=== PATIENT | male | born 1935 | race Caucasian/White ===

== ENCOUNTER 2018-07-07 11:36 | Emergency (ER) | payer MEDICARE ==
--- NOTE | 2018-07-07 12:10 | ERPHSYRPT ---
- History of Present Illness Time Seen by Provider: 07/07/18 12:00 Source: patient Patient Subjective Stated Complaint: had has bleeding to lower lip, he has a scab on lip from cutting it from shaving bout 2 weeks ago, today scab came off and now it is bleeding Triage Nursing Assessment: pt walked in, alert, resp easy, skin w.d.p bleedign from lower lip Physician History: PATIENT WITH A HISTORY OF PERIPHERAL VASCULAR OCCLUSIVE DISEASE, BILATERAL FEMORAL STENTS ON COUMADIN, SUSTAINED A SMALL CUT BELOW HIS LOWER LIP 2 WEEKS AGO, WHILE SHAVING, NOW SCAB CAME OFF WHILE SHAVING AND HAS PERSISTENT BLEEDING FROM SITE. Timing/Duration: gradual onset Severity: mild ENT Location: mouth (BELOW LOWER LIP) Modifying Factors: Improves With: nothing Associated Symptoms: denies symptoms Allergies/Adverse Reactions: No Known Drug Allergies Allergy (Unverified 07/07/18 11:52) Home Medications: No Reportable Medications [No Reported Medications] 07/07/18 [History] Hx Tetanus, Diphtheria Vaccination/Date Given: No Hx Influenza Vaccination/Date Given: Yes Hx Pneumococcal Vaccination/Date Given: Yes Immunizations Up to Date: Yes - Review of Systems Constitutional: No Fever, No Chills Eyes: No Symptoms Ears, Nose, & Throat: No Symptoms, Other (1 MM OPEN WOUND BELOW LOWER LIP LEFT TO MIDLINE BELOW FLORESITA BORDER) Respiratory: No Symptoms, No Cough, No Dyspnea Cardiac: No Symptoms, No Chest Pain, No Edema, No Syncope Abdominal/Gastrointestinal: No Symptoms, No Abdominal Pain, No Nausea, No Vomiting, No Diarrhea Genitourinary Symptoms: No Dysuria Musculoskeletal: No Back Pain, No Neck Pain Skin: No Rash Neurological: No Dizziness, No Focal Weakness, No Sensory Changes Psychological: No Symptoms Endocrine: No Symptoms All Other Systems: Reviewed and Negative - Past Medical History Pertinent Past Medical History: Yes Cardiac History: Coronary Artery Disease Respiratory History: Other Endocrine Medical History: Diabetes Type II Other Medical History: colon cancer resolved, kindey disease - Past Surgical History Past Surgical History: Yes Cardiac: Valve Replacement Gastrointestinal: Colon Resection Other Surgical History: stents in legs - Social History Smoking Status: Former smoker Exposure to second hand smoke: No Drug Use: none Patient Lives Alone: No - Nursing Vital Signs Nursing Vital Signs: Initial Vital Signs Temperature 97.6 F 07/07/18 11:47 Pulse Rate 65 07/07/18 11:47 Respiratory Rate 16 07/07/18 11:47 Blood Pressure 163/81 07/07/18 11:47 O2 Sat by Pulse Oximetry 96 07/07/18 11:47 Pain Scale Pain Intensity 0 - Physical Exam General Appearance: no apparent distress, alert Eye Exam: bilateral eye: PERRL, EOMI Nasal Exam: normal inspection Throat Exam: normal, pharynx normal (THERE IS A 1MM PUNCTURE WOUND SUPERFICIAL, BELOW LOWER LIP, LEFT TO MIDLINE, INFERIOR TO FLORESITA BORDER) Neck Exam: supple Cardiovascular/Respiratory Exam: normal breath sounds, regular rate/rhythm, heart sounds normal Neurologic Exam: alert, oriented x 3 Skin Exam: normal color SpO2: 96 Procedures - Laceration/Wound Repair Upper Lip Wound Length (cm): 0.1 Wound's Depth, Shape: superficial Wound Explored: clean Irrigated: Yes Hibiclens Prep: Yes Anesthesia: local, 1% Lidocaine Volume Anesthetic (ccs): 1 Wound Repaired With: sutures Suture Size/Type: 6-0 Number of Sutures: 1 Sterile Dressing Applied?: No Splint Applied?: No Ordered Tests: Active Orders 24 hr Category Date Time Status CBC W DIFF Stat Lab 07/07/18 12:04 Completed PROTIME WITH INR Stat Lab 07/07/18 12:04 Completed Lab/Rad Data: Laboratory Result Diagrams 07/07/18 12:04 Laboratory Results 07/07/18 07/07/18 Range/Units 12:04 12:04 WBC 6.0 (4.0-10.5) K/mm3 RBC 4.13 (4.1-5.6) M/mm3 Hgb 11.4 L (12.5-18.0) gm/dl Hct 34.4 L (42-50) % MCV 83.3 (78-100) fl MCH 27.6 (26-32) pg MCHC 33.1 (32-36) g/dl RDW 14.7 H (11.5-14.0) % Plt Count 177 (150-450) K/mm3 MPV 8.9 (6-9.5) fl Gran % 72.7 H (36.0-66.0) % Eos # (Auto) 0.23 (0-0.5) Absolute Lymphs (auto) 0.88 L (1.0-4.6) Absolute Monos (auto) 0.49 (0.0-1.3) Lymphocytes % 14.6 L (24.0-44.0) % Monocytes % 8.2 (0.0-12.0) % Eosinophils % 3.8 (0.00-5.0) % Basophils % 0.7 (0.0-0.4) % Absolute Granulocytes 4.37 (1.4-6.9) Basophils # 0.04 (0-0.4) PT 31.4 H (8.83-12.87) SECONDS INR 2.67 (0.8-3.0) - Progress Progress: improved Progress Note: 07/07/18 13:12 LIDOCAINE 1% 1 ML INFILTRATION OVER SITE 1MM WOUND , SUTURE WITH ETHLION 6-0 SUTURE-1 Counseled pt/family regarding: lab results, diagnosis, need for follow-up - Departure Time of Disposition: 13:18 Departure Disposition: Home Clinical Impression: LIP LACERATION Condition: Stable Critical Care Time: No Referrals: Sonya HARTMANN [Primary Care Provider] - Additional Instructions: HAVE SUTURE BELOW LOWER LIP REMOVED AT 8 DAYS. APPLY PRESSURE OVER SITE FOR ONSET OF BLEEDING FOR 15 MINUTES, AND RETURN TO EMERGENCY ROOM FOR PERSISTENT BLEEDING.
[2018-07-07 12:18] LABS: BASOPHIL % 0.7 % (0.0-0.4); Basophil (Absolute #) 0.04 (0-0.4); Eosinophil % 3.8 % (0.00-5.0); Eosinophil (Absolute #) 0.23 (0-0.5); Granulocyte Absolute (ANC) 4.37 (1.4-6.9); Granulocytes % 72.7 % (36.0-66.0); Hematocrit 34.4 % (42-50); Hemoglobin 11.4 gm/dl (12.5-18.0); Lymphocyte (Absolute #) 0.88 (1.0-4.6); Lymphocytes % 14.6 % (24.0-44.0); Mean Cell Volume 83.3 fl (78-100); Mean Corpuscular Hemoglobin 27.6 pg (26-32); Mean Corpuscular Hgb Concent. 33.1 g/dl (32-36); Mean Platelet Volume 8.9 fl (6-9.5); Monocyte (Absolute #) 0.49 (0.0-1.3); Monocytes % 8.2 % (0.0-12.0); Platelet Count 177 K/mm3 (150-450); Red Blood Count 4.13 M/mm3 (4.1-5.6); Red Cell Distribution Width 14.7 % (11.5-14.0)
[2018-07-07 12:25] LABS: INR 2.67 (0.8-3.0); PROTIME 31.4 SECONDS (8.83-12.87)
[2018-07-07 13:25] VITALS: PULSE 70
[2018-07-07 13:30] VITALS: BP 143/67; O2SAT 97
== END 2018-07-07 13:25 | disposition home or self-care (01) ==
LOC: ED 11:36
DX: S01.511A Laceration without foreign body of lip, initial encounter (principal); Z79.01 Long term (current) use of anticoagulants; W26.8XXA Contact with other sharp object(s), not elsewhere classified, initial encounter; Y93.E1 Activity, personal bathing and showering
CPT/HCPCS: 12001; 36415; 85025; 85610; 99283

== ENCOUNTER 2018-07-29 11:43 | Emergency (ER) | payer MEDICARE ==
[2018-07-29] MEDS ORDERED: Sodium Chloride 0.9% 1000 ML 1,000 ML IV STA (11:46)
--- NOTE | 2018-07-29 11:46 | ERPHSYRPT ---
- History of Present Illness Time Seen by Provider: 07/29/18 11:46 Source: patient, family Exam Limitations: no limitations Physician History: 83 y/o white male with h/o peripheral vascular dz with stents in place, diabetes , chronic renal dz stage 3, and cardiac valve placement in the past, presents with stroke like sx including dragging foot(unsure which one) and slurred speech. pt is on warfarin and asa daily. pts sx lasted only a few seconds per pt and spouse. occurred while pt was eating lunch at a restaurant. pt declined ems transport to ed. pt denies visual changes and denies cp. Timing/Duration: today Severity: moderate Character of Deficits: new weakness, impaired speech Deficits: no difficulties Baseline/Normal Cognition: alert oriented x 3 Current Cognition: alert oriented x 3 Baseline Gait: walks w/o assistance Associated Symptoms: slurred speech, trouble walking, No confusion, No loss of consciousness, No ringing in ears, No seizures, No vision changes Allergies/Adverse Reactions: No Known Drug Allergies Allergy (Verified 07/29/18 12:09) Home Medications: Aspirin EC 81 mg [Ecotrin 81 mg] 81 mg PO DAILY 07/29/18 [History] Atorvastatin Calcium 20 mg PO DAILY 07/29/18 [History] Gabapentin 300 mg PO DAILY 07/29/18 [History] HydrALAzine HCL 25 MG TAB [Apresoline 25 MG TABLET] 75 mg PO TID 07/29/18 [History] Hydrochlorothiazide 25 mg [hydroDIURIL 25 MG] 25 mg PO DAILY 07/29/18 [ History] Labetalol HCl [Trandate] 300 mg PO BID 07/29/18 [History] Losartan Potassium [Cozaar] 100 mg PO DAILY 07/29/18 [History] Metformin HCl 500 mg PO DAILY 07/29/18 [History] Tamsulosin HCl 0.4 mg PO BID 07/29/18 [History] Warfarin Sodium 5 mg PO UD 07/29/18 [History] Hx Tetanus, Diphtheria Vaccination/Date Given: No Hx Influenza Vaccination/Date Given: Yes Hx Pneumococcal Vaccination/Date Given: Yes - Review of Systems Constitutional: No Symptoms Eyes: No Symptoms Ears, Nose, & Throat: No Symptoms Respiratory: No Symptoms Cardiac: No Symptoms Abdominal/Gastrointestinal: No Symptoms Genitourinary Symptoms: No Symptoms Musculoskeletal: No Symptoms Skin: No Symptoms Neurological: Gait Changes, Speech Changes Psychological: No Symptoms - Past Medical History Pertinent Past Medical History: Yes Neurological History: No Pertinent History ENT History: No Pertinent History Cardiac History: Coronary Artery Disease Respiratory History: Other Endocrine Medical History: Diabetes Type II Musculoskeletal History: No Pertinent History GI Medical History: No Pertinent History History: No Pertinent History Psycho-Social History: No Pertinent History Male Reproductive Disorders: No Pertinent History Other Medical History: colon cancer resolved, kindey disease - Past Surgical History Past Surgical History: Yes Neuro Surgical History: No Pertinent History Cardiac: No Pertinent History, Valve Replacement Respiratory: No Pertinent History Gastrointestinal: Colon Resection Genitourinary: No Pertinent History Musculoskeletal: No Pertinent History Male Surgical History: No Pertinent History Other Surgical History: stents in legs - Social History Smoking Status: Former smoker Exposure to second hand smoke: No Drug Use: none Patient Lives Alone: No - Nursing Vital Signs Nursing Vital Signs: Initial Vital Signs Temperature 97.6 F 07/29/18 11:44 Pulse Rate 65 07/29/18 11:44 Respiratory Rate 17 07/29/18 11:44 Blood Pressure 179/77 07/29/18 11:44 O2 Sat by Pulse Oximetry 98 07/29/18 11:44 - Sergio Coma Scale Best Eye Response (Sergio): (4) open spontaneously Best Verbal Response (Sergio): (5) oriented Best Motor Response (Sergio): (6) obeys commands [place] Total: 15 - Physical Exam General Appearance: no apparent distress, alert, anxiety Eye Exam: bilateral eye: normal inspection, PERRL, EOMI Ears, Nose, Throat Exam: normal ENT inspection, moist mucous membranes Neck Exam: normal inspection, non-tender, supple, full range of motion Respiratory: normal breath sounds, lungs clear, airway intact, No chest tenderness, No respiratory distress, No accessory muscle use, No rhonchi, No wheezing, No stridor Cardiovascular: regular rate/rhythm, normal heart sounds, normal peripheral pulses Gastrointestinal: soft, normal bowel sounds, No tenderness, No guarding, No rebound Rectal Exam: not done Back Exam: normal inspection, normal range of motion, No CVA tenderness, No vertebral tenderness Extremity Exam: normal inspection, normal range of motion, pelvis stable Peripheral Pulses: carotid (R): 2+, carotid (L): 2+, femoral (R): 2+, femoral (L ): 2+, dorsalis-pedis (R): 1+, dorsalis-pedis (L): 1+ Mental Status: alert, oriented x 3, cooperative curriculum writer Exam: normal hearing, normal speech, PERRL, tongue midline Coordination/Gait: normal finger to nose, normal gait Motor/Sensory: no motor deficit, no sensory deficit, no pronator drift Skin Exam: normal color SpO2 Interpretation: normal O2 Delivery: Room Air - Course Nursing assessment & vital signs reviewed: Yes EKG Interpreted by Me: RATE (64), NORMAL AXIS, Non-specific ST Changes, Other ( atrial escape rhythm. no comparison ekg) Ordered Tests: Active Orders 24 hr Category Date Time Status Numerical Control Machine Machinist STAT Care 07/29/18 11:47 Active Clean Catch Urine Specimen STAT Care 07/29/18 11:46 Active EKG-ER Only STAT Care 07/29/18 11:46 Active IV Insertion STAT Care 07/29/18 11:46 Active Pulse Oximetry (ED) STAT Care 07/29/18 11:46 Active HEAD WITHOUT CONTRAST [CT] Stat Exams 07/29/18 11:46 Completed CBC W DIFF Stat Lab 07/29/18 12:11 Completed CMP Stat Lab 07/29/18 12:11 Completed PROTIME WITH INR Stat Lab 07/29/18 12:11 Completed UA W/RFX UR CULTURE Stat Lab 07/29/18 13:10 Completed Medication Summary Discontinued Medications Generic Name Dose Route Start Last Admin Trade Name Freq PRN Reason Stop Dose Admin Sodium Chloride 1,000 mls @ 999 mls/hr 07/29/18 11:46 07/29/18 13:51 Sodium Chloride 0.9% 1000 Ml IV 07/29/18 12:46 Infused .Q1H1M STA Infusion Sodium Chloride Confirm 07/29/18 12:20 Sodium Chloride 0.9% 1000 Ml Administered 07/29/18 12:21 Dose 1,000 mls @ ud .ROUTE .STK-MED ONE Lab/Rad Data: Laboratory Result Diagrams 07/29/18 12:11 07/29/18 12:11 Laboratory Results 07/29/18 07/29/18 07/29/18 Range/Units 13:10 12:11 12:11 WBC (4.0-10.5) K/mm3 RBC (4.1-5.6) M/mm3 Hgb (12.5-18.0) gm/dl Hct (42-50) % MCV (78-100) fl MCH (26-32) pg MCHC (32-36) g/dl RDW (11.5-14.0) % Plt Count (150-450) K/mm3 MPV (6-9.5) fl Gran % (36.0-66.0) % Eos # (Auto) (0-0.5) Absolute Lymphs (auto) (1.0-4.6) Absolute Monos (auto) (0.0-1.3) Lymphocytes % (24.0-44.0) % Monocytes % (0.0-12.0) % Eosinophils % (0.00-5.0) % Basophils % (0.0-0.4) % Absolute Granulocytes (1.4-6.9) Basophils # (0-0.4) PT 26.3 H (8.83-12.87) SECONDS INR 2.24 (0.8-3.0) Sodium 127 L (137-145) mmol/L Potassium 4.4 (3.5-5.1) mmol/L Chloride 90 L (98-107) mmol/L Carbon Dioxide 23 (22-30) mmol/L Anion Gap 18.3 H (5-15) MEQ/L BUN 43 H (9-20) mg/dL Creatinine 1.60 H (0.66-1.25) mg/dL Estimated GFR 44.3 ML/MIN Glucose 97 (74-106) mg/dL Calcium 9.1 (8.4-10.2) mg/dL Total Bilirubin 0.50 (0.2-1.3) mg/dL AST 45 (17-59) U/L ALT 29 (0-50) U/L Alkaline Phosphatase 66 (38-126) U/L Serum Total Protein 6.6 (6.3-8.2) g/dL Albumin 4.4 (3.5-5.0) g/dL Urine Color STRAW (YELLOW) Urine Appearance CLEAR (CLEAR) Urine pH 6.0 (5-6) Ur Specific [place] 1.004 (1.005-1.025) Urine Protein NEGATIVE (Negative) Urine Ketones NEGATIVE (NEGATIVE) Urine Blood NEGATIVE (0-5) Bernard/ul Urine Nitrite NEGATIVE (NEGATIVE) Urine Bilirubin NEGATIVE (NEGATIVE) Urine Urobilinogen NEGATIVE (0-1) mg/dL Ur Leukocyte Esterase NEGATIVE (NEGATIVE) Urine WBC (Auto) NONE (0-5) /HPF Urine RBC (Auto) NONE (0-2) /HPF U Epithel Cells (Auto) NONE (FEW) /HPF Urine Bacteria (Auto) NONE (NEGATIVE) /HPF Urine Culture Reflexed NO (NO) Urine Glucose NEGATIVE (NEGATIVE) mg/dL 07/29/18 Range/Units 12:11 WBC 6.3 (4.0-10.5) K/mm3 RBC 4.15 (4.1-5.6) M/mm3 Hgb 11.4 L (12.5-18.0) gm/dl Hct 34.1 L (42-50) % MCV 82.2 (78-100) fl MCH 27.4 (26-32) pg MCHC 33.4 (32-36) g/dl RDW 14.7 H (11.5-14.0) % Plt Count 184 (150-450) K/mm3 MPV 9.2 (6-9.5) fl Gran % 70.6 H (36.0-66.0) % Eos # (Auto) 0.41 (0-0.5) Absolute Lymphs (auto) 0.82 L (1.0-4.6) Absolute Monos (auto) 0.59 (0.0-1.3) Lymphocytes % 13.0 L (24.0-44.0) % Monocytes % 9.4 (0.0-12.0) % Eosinophils % 6.5 H (0.00-5.0) % Basophils % 0.5 (0.0-0.4) % Absolute Granulocytes 4.44 (1.4-6.9) Basophils # 0.03 (0-0.4) PT (8.83-12.87) SECONDS INR (0.8-3.0) Sodium (137-145) mmol/L Potassium (3.5-5.1) mmol/L Chloride (98-107) mmol/L Carbon Dioxide (22-30) mmol/L Anion Gap (5-15) MEQ/L BUN (9-20) mg/dL Creatinine (0.66-1.25) mg/dL Estimated GFR ML/MIN Glucose (74-106) mg/dL Calcium (8.4-10.2) mg/dL Total Bilirubin (0.2-1.3) mg/dL AST (17-59) U/L ALT (0-50) U/L Alkaline Phosphatase (38-126) U/L Serum Total Protein (6.3-8.2) g/dL Albumin (3.5-5.0) g/dL Urine Color (YELLOW) Urine Appearance (CLEAR) Urine pH (5-6) Ur Specific [place] (1.005-1.025) Urine Protein (Negative) Urine Ketones (NEGATIVE) Urine Blood (0-5) Bernard/ul Urine Nitrite (NEGATIVE) Urine Bilirubin (NEGATIVE) Urine Urobilinogen (0-1) mg/dL Ur Leukocyte Esterase (NEGATIVE) Urine WBC (Auto) (0-5) /HPF Urine RBC (Auto) (0-2) /HPF U Epithel Cells (Auto) (FEW) /HPF Urine Bacteria (Auto) (NEGATIVE) /HPF Urine Culture Reflexed (NO) Urine Glucose (NEGATIVE) mg/dL - Progress Progress: re-examined Progress Note: 07/29/18 13:28 neurologically intact. pre ED sx completely resolved. 07/29/18 13:29 ct head-no acute intracranial process 07/29/18 14:[address] mitchell, vascular surgeon, who was covering for dr. pappas, pts vascular surgeon. i reviewed pt hx, condition and findings on work up here. pt is ok to go home, continue asa and warfarin. follow up tomorrow at vascular clinic for further testing and evaluation including a carotid duplex. Counseled pt/family regarding: lab results, diagnosis, need for follow-up, rad results - Departure Time of Disposition: 14:37 Departure Disposition: Home Clinical Impression: TIA (transient ischemic attack), Chronic renal insufficiency, stage III ( moderate), Hyponatremia Condition: Stable Critical Care Time: No Referrals: Sonya HARTMANN [Primary Care Provider] - Additional Instructions: continue your medication as prescribed. follow up with your vascular surgery clinic tomorrow for further management. they have discussed with you the time.
--- NOTE | 2018-07-29 12:12 | XRAY ---
Indication: Slurred speech. Possible stroke. Multiple contiguous axial images obtained through the head without contrast. Comparison: None Age-appropriate global atrophy. No acute intracranial hemorrhage, abnormal extra-axial fluid collection, or mass effect. Fourth ventricle is midline without hydrocephalus. Bony calvarium intact. Visualized paranasal sinuses and mastoid air cells are clear. Impression: Atrophy. No acute intracranial abnormalities. CT DI 70.38
[2018-07-29] MEDS ORDERED: Sodium Chloride 0.9% 1000 ML 1,000 ML ONE (12:20)
[2018-07-29 12:57] LABS: BASOPHIL % 0.5 % (0.0-0.4); Basophil (Absolute #) 0.03 (0-0.4); Eosinophil % 6.5 % (0.00-5.0); Eosinophil (Absolute #) 0.41 (0-0.5); Granulocyte Absolute (ANC) 4.44 (1.4-6.9); Granulocytes % 70.6 % (36.0-66.0); Hematocrit 34.1 % (42-50); Hemoglobin 11.4 gm/dl (12.5-18.0); Lymphocyte (Absolute #) 0.82 (1.0-4.6); Mean Cell Volume 82.2 fl (78-100); Mean Corpuscular Hgb Concent. 33.4 g/dl (32-36); Mean Platelet Volume 9.2 fl (6-9.5); Monocyte (Absolute #) 0.59 (0.0-1.3); Monocytes % 9.4 % (0.0-12.0); Platelet Count 184 K/mm3 (150-450); Red Blood Count 4.15 M/mm3 (4.1-5.6); Red Cell Distribution Width 14.7 % (11.5-14.0); White Blood Count 6.3 K/mm3 (4.0-10.5)
[2018-07-29 13:08] LABS: ALBUMIN 4.4 g/dL (3.5-5.0); ANION GAP 18.3 MEQ/L (5-15); BILIRUBIN,TOTAL 0.5 mg/dL (0.2-1.3); Calcium 9.1 mg/dL (8.4-10.2); Creatinine 1 1.6 mg/dL (0.66-1.25); Potassium 4.4 mmol/L (3.5-5.1); Total Protein 6.6 g/dL (6.3-8.2)
[2018-07-29 13:09] LABS: INR 2.24 (0.8-3.0); PROTIME 26.3 SECONDS (8.83-12.87)
[2018-07-29 13:10] LABS: Mean Corpuscular Hemoglobin 27.4 pg (26-32)
[2018-07-29 13:23] LABS: Appearance CLEAR (CLEAR); Bilirubin NEGATIVE (NEGATIVE); Blood NEGATIVE Ery/ul (0-5); Glucose NEGATIVE (NEGATIVE); Ketones NEGATIVE (NEGATIVE); Leukocyte Esterase NEGATIVE (NEGATIVE); Nitrite NEGATIVE (NEGATIVE); Protein,Urine Dip NEGATIVE (Negative); Specific Gravity 1.004 (1.005-1.025); Urobilinogen NEGATIVE mg/dL (0-1)
[2018-07-29 15:08] VITALS: BP 169/79; PULSE 69; O2SAT 94
== END 2018-07-29 15:13 | disposition home or self-care (01) ==
LOC: ED 11:43
DX: G45.9 Transient cerebral ischemic attack, unspecified (principal); N18.9 Chronic kidney disease, unspecified; E87.1 Hypo-osmolality and hyponatremia
CPT/HCPCS: 36000; 36415; 70450; 80053; 81001; 85025; 85610; 93005; 93041; 96360; 99284

== ENCOUNTER 2018-08-04 05:40 | Emergency (ER) | payer MEDICARE ==
[2018-08-04] MEDS ORDERED: DUONEB 0.5-3 MG/3 ml Neb IH ONE ×2 (05:44→05:45)
[2018-08-04] MEDS ORDERED: solu-MEDROL 125 MG IV ONE (05:45)
[2018-08-04] MEDS ORDERED: Sodium Chloride 0.9% 1000 ML 1,000 ML IV SCH (05:45)
--- NOTE | 2018-08-04 05:54 | ERPHSYRPT ---
- History of Present Illness Time Seen by Provider: 08/04/18 05:49 Source: patient, family () Exam Limitations: no limitations Physician History: 83-year-old white male with history of carotid endarterectomy on the left 2 days ago arrives with complaint of severe shortness of breath symptoms beginning last night but became severe this morning at 5 AM. Patient arrives with audible wheezing shortness of breath pulse oximetry of 69%. Patient denies any chest pain denies any fevers, nausea no vomiting. Past medical history includes TIA, renal insufficiency, coronary artery disease , diabetes type 2, colon cancer, kidney disease, hyponatremia. Past surgical history includes valve replacement colon surgery stents in his legs Social history former smoker Timing/Duration: other (symptoms began last night but became severe this am at 5 :00) Activities at Onset: none Severity of Dyspnea-Max: moderate Severity of Dyspnea-Current: moderate Possible Cause: no prior episodes Modifying Factors: Improves With: nothing Associated Symptoms: constant, cough, wheezing, No intermittent, No anxiety, No chest pain/discomfort, No edema, No fever, No insomnia, No loss of appetite, No lightheadedness, No weakness, No ankle swelling, No chills, No hemoptysis ( this last one IV an RI 2 to go ahead and fax isabel) International travel in last 2 weeks: No ( new onset complete ) Allergies/Adverse Reactions: No Known Drug Allergies Allergy (Verified 07/29/18 12:09) Home Medications: Aspirin EC 81 mg [Ecotrin 81 mg] 81 mg PO DAILY 07/29/18 [History] Atorvastatin Calcium 20 mg PO DAILY 07/29/18 [History] Gabapentin 300 mg PO DAILY 07/29/18 [History] HydrALAzine HCL 25 MG TAB [Apresoline 25 MG TABLET] 75 mg PO TID 07/29/18 [History] Hydrochlorothiazide 25 mg [hydroDIURIL 25 MG] 25 mg PO DAILY 07/29/18 [ History] Labetalol HCl [Trandate] 300 mg PO BID 07/29/18 [History] Losartan Potassium [Cozaar] 100 mg PO DAILY 07/29/18 [History] Metformin HCl 500 mg PO DAILY 07/29/18 [History] Tamsulosin HCl 0.4 mg PO BID 07/29/18 [History] Warfarin Sodium 5 mg PO UD 07/29/18 [History] Hx Tetanus, Diphtheria Vaccination/Date Given: No Hx Influenza Vaccination/Date Given: Yes Hx Pneumococcal Vaccination/Date Given: Yes - Review of Systems Constitutional: No Fever, No Chills Eyes: No Symptoms Ears, Nose, & Throat: No Symptoms Respiratory: Cough, Dyspnea, Wheezing Cardiac: No Chest Pain, No Edema, No Palpitations, No Syncope, No Orthopnea, No PND Abdominal/Gastrointestinal: No Abdominal Pain, No Nausea, No Vomiting, No Diarrhea Genitourinary Symptoms: No Dysuria Musculoskeletal: No Back Pain, No Neck Pain Skin: No Rash Neurological: No Dizziness, No Focal Weakness, No Sensory Changes Psychological: No Symptoms Endocrine: No Symptoms All Other Systems: Reviewed and Negative - Past Medical History Pertinent Past Medical History: Yes Neurological History: No Pertinent History ENT History: No Pertinent History Cardiac History: Coronary Artery Disease Respiratory History: Other Endocrine Medical History: Diabetes Type II Musculoskeletal History: No Pertinent History GI Medical History: No Pertinent History History: No Pertinent History Psycho-Social History: No Pertinent History Male Reproductive Disorders: No Pertinent History Other Medical History: colon cancer resolved, kindey disease - Past Surgical History Past Surgical History: Yes Neuro Surgical History: No Pertinent History Cardiac: No Pertinent History, Valve Replacement Respiratory: No Pertinent History Gastrointestinal: Colon Resection Genitourinary: No Pertinent History Musculoskeletal: No Pertinent History Male Surgical History: No Pertinent History Other Surgical History: stents in legs - Social History Smoking Status: Former smoker Exposure to second hand smoke: No Drug Use: none Patient Lives Alone: No - Nursing Vital Signs Nursing Vital Signs: Initial Vital Signs Pulse Rate 110 H 08/04/18 05:43 Respiratory Rate 36 H 08/04/18 05:43 Blood Pressure 143/68 08/04/18 05:43 O2 Sat by Pulse Oximetry 50 L 08/04/18 05:43 Pain Scale Pain Intensity 0 - Physical Exam General Appearance: moderate distress ([facility] had last one done), alert Eye Exam: PERRL/EOMI Ears, Nose, Throat Exam: hearing grossly normal (is currently), normal ENT inspection, normal pharynx, No abnormal TM (R), No abnormal TM (L) (some slight) Neck Exam: other (patient with dressing in place left carotid) Respiratory Exam: diminished breath sounds, crackles/rales, wheezing Cardiovascular/Chest Exam: normal heart sounds, regular rate/rhythm Abdominal/Gastrointestinal Exam: soft, No tenderness, No distention, No mass Extremity Exam: non-tender, normal range of motion, normal inspection, no calf tenderness, no pedal edema Peripheral Pulses Exam: dorsalis-pedis (R): 2+, dorsalis-pedis (L): 2+ Neurologic Exam: alert, oriented x 3, cooperative, golf instructor II-XII nml as tested, sensation nml, No motor deficits Skin Exam: normal color, warm, No dry SpO2 Interpretation: hypoxic (59%) O2 Delivery: Room Air - Course Nursing assessment & vital signs reviewed: Yes EKG Interpreted by Me: RATE (99%), Sinus Rhythm, Other (EKG sinus rhythm 93 bpm complete left bundle-branch block , new as compared to July 29, 2018.) - Radiology Exams Chest X-ray Interpretation: Interpreted by me (chest x-ray: Pulmonary edema, no pneumothorax.) Ordered Tests: Active Orders 24 hr Category Date Time Status Production Line Mechanic STAT Care 08/04/18 05:45 Active EKG-ER Only STAT Care 08/04/18 05:45 Active IV Insertion STAT Care 08/04/18 05:45 Active Oxygen-ED Only NON-REBREATHER 100% Care 08/04/18 05:45 Active CHEST 1 VIEW (PORTABLE) Stat Exams 08/04/18 05:45 Taken ARTERIAL BLOOD GASES Stat Lab 08/04/18 05:55 Completed BLOOD CULTURE Stat Lab 08/04/18 06:00 Received CBC W DIFF Stat Lab 08/04/18 06:00 Completed CMP Stat Lab 08/04/18 06:00 Completed CULTURE,SPUTUM Stat Lab 08/04/18 05:45 Uncollected D-DIMER QUANTITATION Stat Lab 08/04/18 06:00 Completed Lactic Acid Stat Lab 08/04/18 05:55 Completed NT PRO BNP Stat Lab 08/04/18 06:00 Completed PROTIME WITH INR Stat Lab 08/04/18 06:00 Completed PTT Stat Lab 08/04/18 06:00 Completed TROPONIN Q3H Lab 08/04/18 06:00 Completed TROPONIN Q3H Lab 08/04/18 08:45 Ordered TROPONIN Q3H Lab 08/04/18 11:45 Ordered TROPONIN Q3H Lab 08/04/18 14:45 Ordered TROPONIN Q3H Lab 08/04/18 17:45 Ordered Respiratory Therapy Assessment DAILY RT 08/04/18 06:04 Active Medication Summary Generic Name Dose Route Start Last Admin Trade Name Freq PRN Reason Stop Dose Admin Sodium Chloride 1,000 mls @ 50 mls/hr 08/04/18 05:45 08/04/18 06:14 Sodium Chloride 0.9% 1000 Ml IV 09/03/18 05:44 50 mls/hr .Q20H NELLY Administration Discontinued Medications Generic Name Dose Route Start Last Admin Trade Name Chauq PRN Reason Stop Dose Admin Albuterol/Ipratropium 3 ml 08/04/18 05:45 08/04/18 05:50 Duoneb 0.5-3 Mg/3 Ml Neb IH 08/04/18 05:46 3 ml STAT ONE Administration Aspirin 324 mg 08/04/18 06:15 08/04/18 06:18 Baby Aspirin 81 Mg Chew PO 08/04/18 06:16 324 mg STAT ONE Administration Methylprednisolone Sodium Succinate 125 mg 08/04/18 05:45 08/04/18 06:13 Solu-Medrol 125 Mg IV 08/04/18 05:46 125 mg STAT ONE Administration Methylprednisolone Sodium Succinate Confirm 08/04/18 06:12 Solu-Medrol 125 Mg Administered 08/04/18 06:13 Dose 125 mg .ROUTE .STK-MED ONE Lab/Rad Data: Laboratory Result Diagrams 08/04/18 06:00 08/04/18 06:00 Laboratory Results 08/04/18 08/04/18 08/04/18 Range/Units 06:00 06:00 06:00 WBC (4.0-10.5) K/mm3 RBC (4.1-5.6) M/mm3 Hgb (12.5-18.0) gm/dl Hct (42-50) % MCV (78-100) fl MCH (26-32) pg MCHC (32-36) g/dl RDW (11.5-14.0) % Plt Count (150-450) K/mm3 MPV (6-9.5) fl Gran % (36.0-66.0) % Eos # (Auto) (0-0.5) Absolute Lymphs (auto) (1.0-4.6) Absolute Monos (auto) (0.0-1.3) Lymphocytes % (24.0-44.0) % Monocytes % (0.0-12.0) % Eosinophils % (0.00-5.0) % Basophils % (0.0-0.4) % Absolute Granulocytes (1.4-6.9) Basophils # (0-0.4) PT 14.4 H (8.83-12.87) SECONDS INR 1.24 (0.8-3.0) APTT 28.2 (24.1-36.1) SECONDS D-Dimer 458 (215-500) ng/mL Puncture Site pCO2 (35-45) mmHg pO2 (75-100) mmHg Base Excess (-2.0-2.0) O2 Saturation (94-100) g/dF ABG pH (7.35-7.45) ABG HCO3 (22-28) ABG O2 Sat (Measured) (95-100) % Ridge Test A-a Gradient a/A Ratio Hemoglobin Carboxyhemoglobin (0.0-6.9) % THgb Methemoglobin (1.4-1.5) % Potassium 4.5 (3.5-5.1) Temperature C POC O2 Flow Rate % Sodium 137 (137-145) mmol/L Chloride 104 (98-107) mmol/L Carbon Dioxide 23 (22-30) mmol/L Anion Gap 14.1 (5-15) MEQ/L BUN 28 H (9-20) mg/dL Creatinine 1.27 H (0.66-1.25) mg/dL Estimated GFR 57.9 ML/MIN Glucose 129 H (74-106) mg/dL Lactic Acid (0.4-2.0) Calcium 9.1 (8.4-10.2) mg/dL Total Bilirubin 0.80 (0.2-1.3) mg/dL AST 29 (17-59) U/L ALT 20 (0-50) U/L Alkaline Phosphatase 61 (38-126) U/L Troponin I (0.000-0.034) ng/mL NT-Pro-B Natriuret Pep 2570 H (0-1800) pg/mL Serum Total Protein 6.3 (6.3-8.2) g/dL Albumin 4.0 (3.5-5.0) g/dL 08/04/18 08/04/18 08/04/18 Range/Units 06:00 06:00 05:55 WBC 10.9 H (4.0-10.5) K/mm3 RBC 4.19 (4.1-5.6) M/mm3 Hgb 11.5 L (12.5-18.0) gm/dl Hct 36.1 L (42-50) % MCV 86.2 (78-100) fl MCH 27.4 (26-32) pg MCHC 31.9 L (32-36) g/dl RDW 14.9 H (11.5-14.0) % Plt Count 201 (150-450) K/mm3 MPV 9.0 (6-9.5) fl Gran % 81.5 H (36.0-66.0) % Eos # (Auto) 0.26 (0-0.5) Absolute Lymphs (auto) 1.00 (1.0-4.6) Absolute Monos (auto) 0.69 (0.0-1.3) Lymphocytes % 9.2 L (24.0-44.0) % Monocytes % 6.3 (0.0-12.0) % Eosinophils % 2.4 (0.00-5.0) % Basophils % 0.6 (0.0-0.4) % Absolute Granulocytes 8.86 H (1.4-6.9) Basophils # 0.06 (0-0.4) PT (8.83-12.87) SECONDS INR (0.8-3.0) APTT (24.1-36.1) SECONDS D-Dimer (215-500) ng/mL Puncture Site RIGHT BRACHIAL pCO2 36 (35-45) mmHg pO2 67 L (75-100) mmHg Base Excess -2.1 L (-2.0-2.0) O2 Saturation 92.2 L (94-100) g/dF ABG pH 7.40 (7.35-7.45) ABG HCO3 22.3 (22-28) ABG O2 Sat (Measured) 94.7 L (95-100) % Ridge Test NOT APPLICABLE A-a Gradient 601 a/A Ratio 0.10 Hemoglobin 11.0 Carboxyhemoglobin 2.1 (0.0-6.9) % THgb Methemoglobin 0.6 L (1.4-1.5) % Potassium 4.4 (3.5-5.1) Temperature 37.0 C POC O2 Flow Rate 100 % Sodium (137-145) mmol/L Chloride (98-107) mmol/L Carbon Dioxide (22-30) mmol/L Anion Gap (5-15) MEQ/L BUN (9-20) mg/dL Creatinine (0.66-1.25) mg/dL Estimated GFR ML/MIN Glucose (74-106) mg/dL Lactic Acid 1.2 (0.4-2.0) Calcium (8.4-10.2) mg/dL Total Bilirubin (0.2-1.3) mg/dL AST (17-59) U/L ALT (0-50) U/L Alkaline Phosphatase (38-126) U/L Troponin I 0.029 (0.000-0.034) ng/mL NT-Pro-B Natriuret Pep (0-1800) pg/mL Serum Total Protein (6.3-8.2) g/dL Albumin (3.5-5.0) g/dL - Progress Progress: improved Air Movement: fair Progress Note: 08/04/18 06:16 83-year-old white male with history of TIA, renal insufficiency, coronary artery disease, diabetes mellitus, colon cancer, kidney disease, hyponatremia Patient apparently has had a valve replacement and a colon resection as well as stents in his legs he had a left carotid endarterectomy 2 days ago on Sunday. He apparently began to feel short of breath last night this morning at 5 AM became extremely short of breath. Arrives in respiratory distress with pulse oximetry of 59% on room air he had bilateral rales and wheezes in his lungs. Patient is given an albuterol treatment given Solu-Medrol 125 mg IV he is placed on 100% oxygen and he was given albuterol treatment he seems to be improved unfortunately however patient with an EKG remarkable for new-onset of left bundle branch block as compared to July 29, 2018, with she is suspicious for cardiac ischemia. Patient with a CBC white count 10.9 hemoglobin 11.5 hematocrit 36.1 platelets 201 D-dimer PT PTT are pending patient states he is on Coumadin and Plavix. Patient's chest x-ray remarkable for pulmonary edema Patient's arterial blood gases on 100% oxygen pH 7.4 PCO2 36 PO2 67 bicarbonate 22 O2 sat 94.7 Impression flash pulmonary edema. New-onset left bundle branch block. History of recent carotid endarterectomy. History of valvular heart disease. Plan I have discussed the case with Dr. Lott, contact lens edge buffer at [facility] in [place] he agrees to giving the patient aspirin 324 mg orally patient appears to be improved Will hold off on antibiotics at this time, Will plan to transfer patient to [facility] patient's chemistry and troponin are pending, 08/04/18 06:33 Patient with BNP 2570 patient given 40 mg of Lasix IV. - Departure Time of Disposition: 06:30 Departure Disposition: Transfer ([facility], Dr. Lott) Clinical Impression: Shortness of breath, Flash pulmonary edema, New onset left bundle branch block (LBBB), history of recent left carotid endartere Condition: Fair Critical Care Time: No Referrals: Sonya HARTMANN [Primary Care Provider] -
[2018-08-04 05:58] LABS: A-aADO2 601; ABG POTASSIUM 4.4 (3.5-5.1); ABG SITE RIGHT BRACHIAL; ARTERIAL BLD GAS O2 SATURATION 94.7 % (95-100); ARTERIAL BLOOD GAS BASE EXCESS -2.1 (-2.0-2.0); ARTERIAL BLOOD GAS FIO2 100 %; ARTERIAL BLOOD GAS PCO2 36 mmHg (35-45); ARTERIAL BLOOD GAS PO2 67 mmHg (75-100); CARBOXYHEMOGLOBIN 2.1 % THgb (0.0-6.9); HCO3- 22.3 (22-28); HGB O2 SAT 92.2 g/dF (94-100); Lactic Acid 1.2 (0.4-2.0); Methhemoglobin 0.6 % (1.4-1.5)
[2018-08-04 06:09] LABS: BASOPHIL % 0.6 % (0.0-0.4); Basophil (Absolute #) 0.06 (0-0.4); Eosinophil % 2.4 % (0.00-5.0); Eosinophil (Absolute #) 0.26 (0-0.5); Granulocyte Absolute (ANC) 8.86 (1.4-6.9); Granulocytes % 81.5 % (36.0-66.0); Hematocrit 36.1 % (42-50); Hemoglobin 11.5 gm/dl (12.5-18.0); Lymphocytes % 9.2 % (24.0-44.0); Mean Cell Volume 86.2 fl (78-100); Mean Corpuscular Hemoglobin 27.4 pg (26-32); Mean Corpuscular Hgb Concent. 31.9 g/dl (32-36); Monocyte (Absolute #) 0.69 (0.0-1.3); Monocytes % 6.3 % (0.0-12.0); Platelet Count 201 K/mm3 (150-450); Red Blood Count 4.19 M/mm3 (4.1-5.6); Red Cell Distribution Width 14.9 % (11.5-14.0); White Blood Count 10.9 K/mm3 (4.0-10.5)
[2018-08-04] MEDS ORDERED: solu-MEDROL 125 MG ONE (06:12)
[2018-08-04] MEDS ORDERED: Sodium Chloride 0.9% 1000 ML 1,000 ML ONE (06:12)
[2018-08-04] MEDS ORDERED: BABY ASPIRIN 81 MG CHEW PO ONE (06:15)
[2018-08-04 06:18] LABS: INR 1.24 (0.8-3.0); PROTIME 14.4 SECONDS (8.83-12.87)
[2018-08-04 06:20] LABS: PTT 28.2 SECONDS (24.1-36.1)
[2018-08-04 06:29] LABS: ANION GAP 14.1 MEQ/L (5-15); BILIRUBIN,TOTAL 0.8 mg/dL (0.2-1.3); Calcium 9.1 mg/dL (8.4-10.2); Creatinine 1 1.27 mg/dL (0.66-1.25); Potassium 4.5 mmol/L (3.5-5.1); Total Protein 6.3 g/dL (6.3-8.2)
[2018-08-04] MEDS ORDERED: Lasix 40 MG/4 ML IV ONE (06:33)
[2018-08-04] MEDS ORDERED: Lasix 40 MG/4 ML ONE (06:40)
[2018-08-04 06:49] VITALS: O2SAT 98
[2018-08-04 06:50] VITALS: PULSE 80
[2018-08-04 06:52] LABS: INFLUENZA A NEGATIVE (NEGATIVE); INFLUENZA B NEGATIVE (NEGATIVE); RESPIRATORY SYNCTIAL VIRUS NEGATIVE (Negative)
[2018-08-04 07:52] VITALS: BP 186/85
--- NOTE | 2018-08-04 08:39 | XRAY ---
Indication: Short of breath. Comparison: None Portable chest demonstrates cardiomegaly with moderate bilateral effusions concerning for cardiac decompensation. Also patchy bilateral infiltrates/atelectasis concerning for superimposed pneumonia. Incidental scattered bilateral calcified pleural plaquing and previous cardiothoracic surgery with aortic stent graft.
== END 2018-08-04 07:54 | disposition short-term general hospital (02) ==
LOC: ED 05:40
DX: R06.02 Shortness of breath (principal); I44.7 Left bundle-branch block, unspecified; Z85.038 Personal history of other malignant neoplasm of large intestine; E11.9 Type 2 diabetes mellitus without complications; Z79.4 Long term (current) use of insulin; I25.10 Atherosclerotic heart disease of native coronary artery without angina pectoris; N28.9 Disorder of kidney and ureter, unspecified; Z79.01 Long term (current) use of anticoagulants; Z79.899 Other long term (current) drug therapy; Z86.73 Personal history of transient ischemic attack (TIA), and cerebral infarction without residual deficits
CPT/HCPCS: 36000; 36415; 36600; 71045; 80053; 82375; 82803; 83605; 83880; 84484; 85025; 85379; 85610; 85730; 87040; 87631; 93005; 93041; 94640; 96360; 96361; 96374; 96375; 99285; J1940; J2930; A9270-GY

== ENCOUNTER 2018-08-13 07:36 | Emergency (ER) | payer MEDICARE ==
--- NOTE | 2018-08-13 08:03 | ERPHSYRPT ---
- History of Present Illness Time Seen by Provider: 08/13/18 07:50 Source: patient, family Physician History: 83 y/o white male on coumadin presents with skin tear on external right nostril after left leg gave out this am. pt is s/p left carotid endarterectomy. pt states he would not have come into ED except he could not get the bleeding stopped from skin tear site despite pressure. no loc. denies pain Occurred: just prior to arrival Reason for Fall: lost balance Injuries/Pain Location: face Loss of Consciousness: no loss of consciousness Severity of Pain-Max: none Severity of Pain-Current: none Associated Symptoms (Fall): denies symptoms, No headache, No lightheadedness, No nausea, No slurred speech, No trouble walking, No vomiting Allergies/Adverse Reactions: No Known Drug Allergies Allergy (Verified 08/13/18 08:02) Home Medications: Aspirin EC 81 mg [Ecotrin 81 mg] 81 mg PO DAILY 07/29/18 [History] Atorvastatin Calcium 20 mg PO DAILY 07/29/18 [History] Gabapentin 300 mg PO DAILY 07/29/18 [History] HydrALAzine HCL 25 MG TAB [Apresoline 25 MG TABLET] 75 mg PO TID 07/29/18 [History] Labetalol HCl [Trandate] 300 mg PO BID 07/29/18 [History] Losartan Potassium [Cozaar] 100 mg PO DAILY 07/29/18 [History] Tamsulosin HCl 0.4 mg PO BID 07/29/18 [History] Warfarin Sodium 5 mg PO UD 07/29/18 [History] Amlodipine Besylate 10 mg PO DAILY 08/13/18 [History] Clopidogrel Bisulfate 75 mg [PLAVIX 75 MG Tablet] 75 mg PO DAILY 08/13/18 [History] Furosemide 40 mg [Lasix 40 MG] 40 mg PO DAILY 08/13/18 [History] Hx Tetanus, Diphtheria Vaccination/Date Given: No Hx Influenza Vaccination/Date Given: Yes Hx Pneumococcal Vaccination/Date Given: Yes - Review of Systems Constitutional: No Symptoms Eyes: No Symptoms Ears, Nose, & Throat: No Symptoms Respiratory: No Symptoms Cardiac: No Symptoms Abdominal/Gastrointestinal: No Symptoms Genitourinary Symptoms: No Symptoms Musculoskeletal: No Symptoms Skin: Other (skin tear nose) Neurological: No Symptoms Psychological: No Symptoms Endocrine: No Symptoms Hematologic/Lymphatic: No Symptoms Immunological/Allergic: No Symptoms All Other Systems: Reviewed and Negative - Past Medical History Pertinent Past Medical History: Yes Neurological History: No Pertinent History ENT History: No Pertinent History Cardiac History: Coronary Artery Disease Respiratory History: Other Endocrine Medical History: Diabetes Type II Musculoskeletal History: No Pertinent History GI Medical History: No Pertinent History History: No Pertinent History Psycho-Social History: No Pertinent History Male Reproductive Disorders: No Pertinent History Other Medical History: colon cancer resolved, kindey disease - Past Surgical History Past Surgical History: Yes Neuro Surgical History: No Pertinent History Cardiac: No Pertinent History, Valve Replacement Respiratory: No Pertinent History Gastrointestinal: Colon Resection Genitourinary: No Pertinent History Musculoskeletal: No Pertinent History Male Surgical History: No Pertinent History Other Surgical History: stents in legs - Social History Smoking Status: Former smoker Exposure to second hand smoke: No Drug Use: none Patient Lives Alone: No - Nursing Vital Signs Nursing Vital Signs: Initial Vital Signs Temperature 97.4 F 08/13/18 07:44 Pulse Rate 68 08/13/18 07:44 Respiratory Rate 16 08/13/18 07:44 Blood Pressure 108/43 08/13/18 07:44 O2 Sat by Pulse Oximetry 94 L 08/13/18 07:44 Pain Scale Pain Intensity 0 - Sergio Coma Score Best Eye Response (Sergio): (4) open spontaneously Best Verbal Response (Gilead): (5) oriented Best Motor Response (Gilead): (6) obeys commands Sergio Total: 15 - Physical Exam General Appearance: no apparent distress Head Injury: no evidence of injury, No Anna's Sign, No contusions, No raccoon eyes, No swelling Eye Exam: PERRL/EOMI ENT Exam: airway nml, other (brisk oozing from 1cm skin tear right ext nostril) Neck Exam: supple, trachea midline, full range of motion, normal alignment, normal inspection Respiratory/Chest Exam: normal breath sounds, No respiratory distress Cardiovascular Exam: normal heart sounds, regular rate/rhythm, normal peripheral pulses Gastrointestinal Exam: soft, No tenderness Rectal Exam: not done Back Exam: normal inspection Extremity Exam: normal inspection, normal range of motion, pelvis stable Neurologic Exam: alert, oriented x 3, cooperative, meat packager II-XII nml as tested Skin Exam: other (skin tear as above) SpO2 Interpretation: normal O2 Delivery: Room Air Procedures - Laceration/Wound Repair Right Face Wound Location: Right, face (nostril) Wound Length (cm): 1 Wound's Depth, Shape: superficial (skin tear) Wound Explored: clean Irrigated: No Hibiclens Prep: Yes Wound Repaired With: Steri-strips (benzoin), Dermabond - Course Nursing assessment & vital signs reviewed: Yes Ordered Tests: Active Orders 24 hr Category Date Time Status HEAD WITHOUT CONTRAST [CT] Stat Exams 08/13/18 08:07 Completed PROTIME WITH INR Stat Lab 08/13/18 08:08 Completed Lab/Rad Data: Laboratory Results 08/13/18 Range/Units 08:08 PT 38.9 H (8.83-12.87) SECONDS INR 3.30 H (0.8-3.0) - Progress Progress: improved Progress Note: 08/13/18 09:02 ct head-no intracranial process Counseled pt/family regarding: diagnosis, need for follow-up, rad results - Departure Time of Disposition: 09:04 Departure Disposition: Home Clinical Impression: Skin tear Condition: Stable Critical Care Time: No Referrals: Sonya HARTMANN [Primary Care Provider] - Additional Instructions: keep bandage site dry for 24 hours. after 24 hours may wash daily. leave steristrips in place until they fall off. use pressure noseclip for 20 minutes at a time 3 times daily until bleeding stops without. stop coumdin. restart morning of 08/15/18. ice pack to area as needed.
[2018-08-13 08:31] LABS: INR 3.3 (0.8-3.0); PROTIME 38.9 SECONDS (8.83-12.87)
--- NOTE | 2018-08-13 08:46 | XRAY ---
Indication: Head injury following fall. Coumadin therapy. Multiple contiguous axial images obtained through the head without contrast. Comparison: July 29, 2018. Stable age-appropriate global atrophy. Again no acute intracranial hemorrhage, abnormal extra-axial fluid collection, or mass effect. Fourth ventricle is midline without hydrocephalus. Bony calvarium intact. Visualized paranasal sinuses and mastoid air cells are clear. Impression: Stable atrophy. No new or acute intracranial abnormalities. CTDI 52.13
[2018-08-13 09:08] VITALS: BP 111/51; PULSE 60; O2SAT 98
== END 2018-08-13 09:11 | disposition home or self-care (01) ==
LOC: ED 07:36
DX: S01.21XA Laceration without foreign body of nose, initial encounter (principal); Z79.01 Long term (current) use of anticoagulants; Z79.899 Other long term (current) drug therapy; I25.10 Atherosclerotic heart disease of native coronary artery without angina pectoris; E11.9 Type 2 diabetes mellitus without complications; Z98.890 Other specified postprocedural states; Z85.038 Personal history of other malignant neoplasm of large intestine; N28.9 Disorder of kidney and ureter, unspecified
CPT/HCPCS: 12011; 36415; 70450; 85610; 99284

== ENCOUNTER 2019-01-05 14:06 | Emergency (ER) | payer MEDICARE ==
[2019-01-05 14:18] VITALS: BP 141/61; PULSE 70; O2SAT 97
[2019-01-05] MEDS ORDERED: Adacel Vial IM ONE (14:25)
[2019-01-05] MEDS: Adacel Vial IM ONE (14:26)
--- NOTE | 2019-01-05 14:26 | ERPHSYRPT ---
- History of Present Illness Time Seen by Provider: 01/05/19 14:22 Source: patient Exam Limitations: no limitations Patient Subjective Stated Complaint: got bit on back of kleg by dog Triage Nursing Assessment: pt alert and orientedx3, able to ambulate by self, lung sounds cleasr, has bite to back of right calf. wound was cleansed and clear dressing applied with antibacterial ream. no other issues or concerns noted Physician History: got bit on back of right leg by dog yesterday Timing/Duration: yesterday Associated Symptoms: denies symptoms Allergies/Adverse Reactions: No Known Drug Allergies Allergy (Verified 08/13/18 08:02) Home Medications: Aspirin EC 81 mg [Ecotrin 81 mg] 81 mg PO DAILY 07/29/18 [History] Atorvastatin Calcium 20 mg PO DAILY 07/29/18 [History] Gabapentin 300 mg PO DAILY 07/29/18 [History] HydrALAzine HCL 25 MG TAB [Apresoline 25 MG TABLET] 75 mg PO TID 07/29/18 [History] Labetalol HCl [Trandate] 300 mg PO BID 07/29/18 [History] Losartan Potassium [Cozaar] 100 mg PO DAILY 07/29/18 [History] Tamsulosin HCl 0.4 mg PO BID 07/29/18 [History] Warfarin Sodium 5 mg PO UD 07/29/18 [History] Amlodipine Besylate 10 mg PO DAILY 08/13/18 [History] Clopidogrel Bisulfate 75 mg [PLAVIX 75 MG Tablet] 75 mg PO DAILY 08/13/18 [History] Furosemide 40 mg [Lasix 40 MG] 40 mg PO DAILY 08/13/18 [History] Hx Tetanus, Diphtheria Vaccination/Date Given: No Hx Influenza Vaccination/Date Given: No Hx Pneumococcal Vaccination/Date Given: No Immunizations Up to Date: Yes - Review of Systems Constitutional: No Symptoms Eyes: No Symptoms Ears, Nose, & Throat: No Symptoms Respiratory: No Symptoms Abdominal/Gastrointestinal: No Symptoms Genitourinary Symptoms: No Symptoms Musculoskeletal: No Symptoms Skin: Other (dog bite on right leg) - Past Medical History Pertinent Past Medical History: Yes Neurological History: No Pertinent History ENT History: No Pertinent History Cardiac History: Coronary Artery Disease Respiratory History: Other Endocrine Medical History: Diabetes Type II Musculoskeletal History: No Pertinent History GI Medical History: No Pertinent History History: No Pertinent History Psycho-Social History: No Pertinent History Male Reproductive Disorders: No Pertinent History Other Medical History: colon cancer resolved, kindey disease - Past Surgical History Past Surgical History: Yes Neuro Surgical History: No Pertinent History Cardiac: No Pertinent History, Valve Replacement Respiratory: No Pertinent History Gastrointestinal: Colon Resection Genitourinary: No Pertinent History Musculoskeletal: No Pertinent History Male Surgical History: No Pertinent History Other Surgical History: stents in legs - Social History Smoking Status: Former smoker Exposure to second hand smoke: No Drug Use: none Patient Lives Alone: No - Nursing Vital Signs Nursing Vital Signs: Initial Vital Signs Temperature 98 F 01/05/19 14:07 Pulse Rate 70 01/05/19 14:07 Respiratory Rate 18 01/05/19 14:07 Blood Pressure 141/61 01/05/19 14:07 O2 Sat by Pulse Oximetry 97 01/05/19 14:07 Pain Scale Pain Intensity 0 - Physical Exam General Appearance: no apparent distress Eye Exam: PERRL/EOMI Ears, Nose, Throat Exam: normal ENT inspection Neck Exam: normal inspection Respiratory Exam: normal breath sounds Cardiovascular Exam: regular rate/rhythm Gastrointestinal/Abdomen Exam: soft Extremity Exam: other (dog bite superficial laceration on right leg(calf)) SpO2: 97 - Course Nursing assessment & vital signs reviewed: Yes Ordered Tests: Active Orders 24 hr Category Date Time Status Wound Care STAT Care 01/05/19 14:21 Active Medication Summary Discontinued Medications Generic Name Dose Route Start Last Admin Trade Name Freq PRN Reason Stop Dose Admin Diphtheria/Tetanus/Acell Pertussis 0.5 ml 01/05/19 14:21 Adacel Vial IM 01/05/19 14:22 .ONCE ONE - Progress Progress: improved Counseled pt/family regarding: diagnosis, need for follow-up - Departure Departure Disposition: Home Clinical Impression: Dog bite of calf Qualifiers: Encounter type: initial encounter Laterality: right Qualified Code(s): S81.851A - Open bite, right lower leg, initial encounter; W54.0XXA - Bitten by dog, initial encounter Condition: Stable Critical Care Time: No Referrals: ASHWIN RENO [Primary Care Provider] - Instructions: Animal Bites (DC) Additional Instructions: Discharge/Care Plan JOHNNIE PEREZ was seen on 01/05/19 in the Emergency Room. The patient was counseled regarding Diagnosis,Lab results, Imaging studies, need for follow up and when to return to the Emergency Room. Prescriptions given: Discharge Note I have spoken with the patient and/or caregivers. I have explained the patient' s condition, diagnosis and treatment plan based on the information available to me at this time. I have answered the patient's and/or caregiver's questions and addressed any concerns. The patient and/or caregivers have as good understanding of the patient's diagnosis, condition and treatment plan as can be expected at this point. The vital signs have been stable. The patient's condition is stable and appropriate for discharge from the emergency department. The patient will pursue further outpatient evaluation with the primary care physician or other designated or consulting physician as outlined in the discharge instructions. The patient and/or caregivers are agreeable to this plan of care and follow-up instructions have been explained in detail. The patient and/or caregivers have received these instruction. The patient/and or caregivers are aware that any significant change in condition or worsening of symptoms should prompt an immediate return to this or the closest emergency department or call 911. Prescriptions: Mupirocin [Bactroban OINTMENT] 1 gm TP BID #30 tube Cephalexin Mh 500 mg [Keflex 500 mg] 500 mg PO QID #28 capsule
== END 2019-01-05 14:35 | disposition home or self-care (01) ==
LOC: ED 14:06
DX: S81.851A Open bite, right lower leg, initial encounter (principal); W54.0XXA Bitten by dog, initial encounter; I25.10 Atherosclerotic heart disease of native coronary artery without angina pectoris; N28.9 Disorder of kidney and ureter, unspecified; E11.9 Type 2 diabetes mellitus without complications; Z79.01 Long term (current) use of anticoagulants; Z79.899 Other long term (current) drug therapy; Z85.038 Personal history of other malignant neoplasm of large intestine; Z95.2 Presence of prosthetic heart valve
CPT/HCPCS: 90471; 90715; 99283